=== PATIENT | male | born 1950 | race Caucasian/White ===

== ENCOUNTER 2021-08-22 07:17 | Day surgery (SDC) | payer OTHER, MEDICARE ==
[2021-08-21 10:29] VITALS: BMI 25.1
[2021-08-22] MEDS ORDERED: PROPOFOL 20 ML ONE ×4 (07:30)
[2021-08-22] MEDS ORDERED: LIDOCAINE HCL/PF 2% SDV 5ML VIAL ONE (07:30)
[2021-08-22 09:05] VITALS: TEMP 97
[2021-08-22 09:18] VITALS: BP 106/65; PULSE 65
== END 2021-08-22 09:32 | disposition home or self-care (01) ==
LOC: FASU-ENDO 07:17
PROVIDERS: ATTEND Internal Medicine Gastroenterology
PROC: 0DBH8ZX Excision of Cecum, Via Natural or Artificial Opening Endoscopic, Diagnostic (ICD-10-PCS; principal; 2021-08-22 08:37)
DX: Z12.11 Encounter for screening for malignant neoplasm of colon (principal); D12.0 Benign neoplasm of cecum; K57.30 Diverticulosis of large intestine without perforation or abscess without bleeding
CPT/HCPCS: 88305-TC